=== PATIENT | male | born 1990 | race Hispanic/Latino ===

== ENCOUNTER 2016-05-10 23:12 | Emergency (ER) | payer MEDICARE ==
[2016-05-10 23:55] LABS: Urine Drugs of Abuse Note Disclamer
[2016-05-11] LABS: Bilirubin,Urine NEG (Negative); Blood,Urine NEG (Negative); Ketones,Urine NEG (Negative); Leukocyte Esterase,Urine NEG (Negative); Mucus,Urine FEW /HPF; Nitrite,Urine NEG (Negative); Protein,Urine <15 mg/dL mg/dL (Negative); Urobilinogen,Urine < 2.0 mg/dL (<2.0)
[2016-05-11] MEDS ORDERED: ATIVAN ONE (00:01)
[2016-05-11] MEDS ORDERED: HALDOL ONE (00:01)
[2016-05-11] MEDS ORDERED: BENADRYL ONE (00:01)
[2016-05-11] MEDS ORDERED: BENADRYL IM ONE (00:16)
[2016-05-11] MEDS ORDERED: ATIVAN IM ONE (00:16)
[2016-05-11] MEDS ORDERED: HALDOL IM ONE (00:16)
[2016-05-11] MEDS ORDERED: BOOSTRIX IM ONE (01:14)
--- NOTE | 2016-05-11 01:14 | Emergency Department Report ---
HPI - General Chief Complaint: Psych Time Seen by Provider: 05/11/16 01:00 - [facility] HPI: Room 14 The patient is a 25-year-old male presenting with a chief complaint of suicidal ideation. The patient states he has been having family problems and today the patient states he attempted to hang himself by tying to together not making a noose. This patient states she put the noose around his neck and hung for approximately 35 seconds before the wire broke. The patient states he took a kitchen knife and scratched at his left wrist. When asked if anything is bothering him currently the patient states he just feels depressed and suicidal. Patient denies other complaints Location: Mental state Duration: 1 day Quality: Suicidal Severity: Severe Modifying factors: [see above] Context: [see above] Mode of transportation: [not driving] ED Past Medical Hx - Past Medical History Hx Hypertension: Yes Hx Headaches / Migraines: Yes Hx Psychiatric Treatment: Yes (depression, anxiety, narcotic abuse and dependence) Additional medical history: Chronic resting tachycardia. Narcotic abuse and dependence. SI - Surgical History Hx Appendectomy: Yes - Family History Family history: no significant - Social History Smoking Status: Current Every Day Smoker (1/2 pack per day) Substance Use Type: None (denies illicit drug use) - Medications Home Medications: Home Medications Medication Instructions Recorded Confirmed Last Taken Type Trazodone HCl [traZODone] 150 mg PO QHS 02/13/16 05/10/16 05/06/16 History risperiDONE [RisperDAL] 4 mg PO BID 02/13/16 05/10/16 05/06/16 History ED Review of Systems ROS: Stated complaint: SUICIDAL Other details as noted in HPI Comment: All other systems reviewed and negative Constitutional: denies: chills, fever Eyes: denies: eye pain, eye discharge, vision change ENT: denies: ear pain, throat pain Respiratory: denies: cough, shortness of breath, wheezing Cardiovascular: denies: chest pain, palpitations Endocrine: no symptoms reported Gastrointestinal: denies: abdominal pain, nausea, diarrhea Genitourinary: denies: urgency, dysuria Musculoskeletal: denies: back pain, joint swelling, arthralgia Skin: denies: rash, lesions Neurological: denies: headache, weakness, paresthesias Psychiatric: suicidal thoughts Hematological/Lymphatic: denies: easy bleeding, easy bruising Physical Exam - Physical Exam Vital Signs: Vital Signs 05/10/16 05/10/16 23:34 23:38 Temperature 98.2 F Pulse Rate 103 H Respiratory 18 16 Rate Blood Pressure 135/81 [Left] O2 Sat by Pulse 98 98 Oximetry Physical Exam: GENERAL: The patient is well-developed well-nourished male sleeping on stretcher not appear to be in acute distress. [] HEENT: Normocephalic. Atraumatic. Extraocular motions are intact. Patient has moist mucous membranes. NECK: Supple. No meningitic signs are noted. Trachea midline. No stridor. No ligature laughlin seen CHEST/LUNGS: Clear to auscultation. There is no respiratory distress noted. HEART/CARDIOVASCULAR: Regular. There is tachycardia. There is no gallop rub or murmur. ABDOMEN: Abdomen is soft, nontender. Patient has normal bowel sounds. There is no abdominal distention. SKIN: There is no rash. There is no edema. There is no diaphoresis. There are multiple superficial linear abrasions to the anterior aspect of left wrist NEURO: The patient is awake, alert, and oriented. The patient is cooperative. The patient has normal speech MUSCULOSKELETAL: There is no evidence of acute injury. ED Course Vital Signs 05/10/16 05/10/16 23:34 23:38 Temperature 98.2 F Pulse Rate 103 H Respiratory 18 16 Rate Blood Pressure 135/81 [Left] O2 Sat by Pulse 98 98 Oximetry ED Medical Decision Making - Lab Data Result diagrams: 05/11/16 01:15 05/11/16 01:15 Laboratory Tests 05/10/16 05/10/16 05/11/16 23:34 23:34 01:15 WBC RBC Hgb Hct MCV MCH MCHC RDW Plt Count Lymph % (Auto) [place] % (Auto) Eos % (Auto) Baso % (Auto) Lymph # [place] # Eos # Baso # Seg Neutrophils % Seg Neutrophils # Sodium 141 Potassium 4.1 Chloride 102.1 Carbon Dioxide 23 Anion Gap 20 BUN 14 Creatinine 0.8 Estimated GFR > 60 BUN/Creatinine Ratio 17.50 Glucose 98 Calcium 9.7 Urine Color Yellow Urine Turbidity Clear Urine pH 6.0 Ur Specific [place] 1.023 Urine Protein <15 mg/dl Urine Glucose (UA) Neg Urine Ketones Neg Urine Blood Neg Urine Nitrite Neg Urine Bilirubin Neg Urine Urobilinogen < 2.0 Ur Leukocyte Esterase Neg Urine WBC (Auto) 1.0 Urine RBC (Auto) 1.0 U Epithel Cells (Auto) 1.0 Urine Mucus Few Salicylates Urine Opiates Screen Presumptive negative Urine Methadone Screen Presumptive negative Acetaminophen Ur Barbiturates Screen Presumptive negative Ur Phencyclidine Scrn Presumptive negative Ur Amphetamines Screen Presumptive negative U Benzodiazepines Scrn Presumptive positive Urine Cocaine Screen Presumptive negative U Marijuana (THC) Screen Presumptive negative Drugs of Abuse Note Disclamer Plasma/Serum Alcohol 05/11/16 05/11/16 05/11/16 01:15 01:15 01:15 WBC 13.8 H RBC 5.07 H Hgb 13.4 Hct 40.2 MCV 79 L MCH 26 L MCHC 33 RDW 14.4 Plt Count 418 Lymph % (Auto) 24.1 [place] % (Auto) 7.9 H Eos % (Auto) 0.6 Baso % (Auto) 0.5 Lymph # 3.3 [place] # 1.1 H Eos # 0.1 Baso # 0.1 Seg Neutrophils % 66.9 Seg Neutrophils # 9.3 H Sodium Potassium Chloride Carbon Dioxide Anion Gap BUN Creatinine Estimated GFR BUN/Creatinine Ratio Glucose Calcium Urine Color Urine Turbidity Urine pH Ur Specific [place] Urine Protein Urine Glucose (UA) Urine Ketones Urine Blood Urine Nitrite Urine Bilirubin Urine Urobilinogen Ur Leukocyte Esterase Urine WBC (Auto) Urine RBC (Auto) U Epithel Cells (Auto) Urine Mucus Salicylates < 0.3 L Urine Opiates Screen Urine Methadone Screen Acetaminophen Ur Barbiturates Screen Ur Phencyclidine Scrn Ur Amphetamines Screen U Benzodiazepines Scrn Urine Cocaine Screen U Marijuana (THC) Screen Drugs of Abuse Note Plasma/Serum Alcohol < 0.01 05/11/16 01:15 WBC RBC Hgb Hct MCV MCH MCHC RDW Plt Count Lymph % (Auto) [place] % (Auto) Eos % (Auto) Baso % (Auto) Lymph # [place] # Eos # Baso # Seg Neutrophils % Seg Neutrophils # Sodium Potassium Chloride Carbon Dioxide Anion Gap BUN Creatinine Estimated GFR BUN/Creatinine Ratio Glucose Calcium Urine Color Urine Turbidity Urine pH Ur Specific [place] Urine Protein Urine Glucose (UA) Urine Ketones Urine Blood Urine Nitrite Urine Bilirubin Urine Urobilinogen Ur Leukocyte Esterase Urine WBC (Auto) Urine RBC (Auto) U Epithel Cells (Auto) Urine Mucus Salicylates Urine Opiates Screen Urine Methadone Screen Acetaminophen < 15.0 Ur Barbiturates Screen Ur Phencyclidine Scrn Ur Amphetamines Screen U Benzodiazepines Scrn Urine Cocaine Screen U Marijuana (THC) Screen Drugs of Abuse Note Plasma/Serum Alcohol - Differential Diagnosis suicidal ideation Critical care attestation.: If time is entered above; I have spent that time in minutes in the direct care of this critically ill patient, excluding procedure time. ED Disposition Clinical Impression: Suicidal ideation Disposition: DC/TX PSY HOSP/PSY UNIT Is pt being admited?: No Does the pt Need Aspirin: No Condition: Stable Referrals: PRIMARY CARE, [Primary Care Provider] - 3-5 Days Time of Disposition: 01:22 (awaiting acceptance)
[2016-05-11] MEDS ORDERED: GEODON ONE (01:30)
[2016-05-11] MEDS ORDERED: GEODON PO ONE (01:30)
[2016-05-11 01:39] LABS: Basophils % (Auto) 0.5 % (0.0-1.8); Eosinophils % (Auto) 0.6 % (0.0-4.3); Hematocrit 40.2 % (35.5-45.6); Hemoglobin 13.4 gm/dl (11.8-15.2); Mean Corpuscular HGB Conc 33 % (32-34); Mean Corpuscular Hemoglobin 26 pg (28-32); Mean Corpuscular Volume 79 fl (84-94); Platelet Count 418 K/mm3 (140-440); Red Blood Count 5.07 M/mm3 (3.65-5.03); Red Cell Distribution Width 14.4 % (13.2-15.2); White Blood Count 13.8 K/mm3 (4.5-11.0)
[2016-05-11 01:45] LABS: Blood Urea Nitrogen 14 mg/dL (9-20); Calcium 9.7 mg/dL (8.4-10.2); Carbon Dioxide 23 mmol/L (22-30); Chloride 102.1 mmol/L (98-107); Glucose 98 mg/dL (75-100); Potassium 4.1 mmol/L (3.6-5.0); Sodium 141 mmol/L (137-145)
[2016-05-11 01:47] LABS: Anion Gap 20 mmol/L
[2016-05-11] MEDS: RisperDAL PO SCH ×2 (21:50→21:51)
[2016-05-11] MEDS: DESYREL PO SCH (21:52)
[2016-05-12] MEDS: RisperDAL PO SCH ×4 (10:25→22:00)
[2016-05-12] MEDS ORDERED: WATER FOR INJ (PF) IM ONE (12:57)
[2016-05-12] MEDS ORDERED: GEODON IM SCH (13:00)
[2016-05-12] MEDS ORDERED: GEODON IM ONE (13:02)
--- NOTE | 2016-05-12 15:15 | Event Note ---
Date: 05/12/16 Awaiting psychiatric placement. Vital signs reviewed. Documented heart rate of 974 most likely an error. Awaiting repeat vital signs. Vital Signs 05/10/16 05/10/16 05/11/16 23:34 23:38 21:58 Temperature 98.2 F 98.2 F Pulse Rate 103 H 974 H Respiratory 18 16 18 Rate Blood Pressure 135/81 120/88 [Left] O2 Sat by Pulse 98 98 98 Oximetry
[2016-05-12] MEDS: DESYREL PO SCH (22:00)
[2016-05-13] MEDS ORDERED: RisperDAL ONE (09:15)
[2016-05-13] MEDS ORDERED: ATIVAN PO ONE (09:22)
[2016-05-13] MEDS: RisperDAL PO SCH ×4 (09:59→22:24)
[2016-05-13] MEDS ORDERED: BENADRYL IM ONE (15:42)
[2016-05-13] MEDS ORDERED: BENADRYL ONE (18:05)
[2016-05-13] MEDS: DESYREL PO SCH (22:25)
[2016-05-14] MEDS ORDERED: BENADRYL PO ONE (08:48)
[2016-05-14] MEDS: RisperDAL PO SCH ×2 (09:51)
[2016-05-14 10:13] LABS: Basophils % (Auto) 0.9 % (0.0-1.8); Eosinophils % (Auto) 0.6 % (0.0-4.3); Hematocrit 38.3 % (35.5-45.6); Hemoglobin 12.6 gm/dl (11.8-15.2); Mean Corpuscular HGB Conc 33 % (32-34); Mean Corpuscular Hemoglobin 27 pg (28-32); Mean Corpuscular Volume 81 fl (84-94); Platelet Count 418 K/mm3 (140-440); Red Blood Count 4.75 M/mm3 (3.65-5.03); Red Cell Distribution Width 14.9 % (13.2-15.2)
[2016-05-14 15:46] VITALS: BP 148/98
== END 2016-05-14 16:46 ==
LOC: EEVIPCON 23:12 → ED 23:12
DX: R45.851 Suicidal ideations (principal); I10 Essential (primary) hypertension; G43.909 Migraine, unspecified, not intractable, without status migrainosus; F32.9 Major depressive disorder, single episode, unspecified; F17.200 Nicotine dependence, unspecified, uncomplicated; Z90.49 Acquired absence of other specified parts of digestive tract
CPT/HCPCS: 36415; 80048; 80307; 81001; 85025; 90471; 90715; 96372; 99285; G0480; J1200; J1630; J2060; J3486; 80320

== ENCOUNTER 2017-09-28 11:03 | Emergency (ER) | payer MEDICAID, OTHER ==
[2017-09-28] MEDS ORDERED: TENORMIN PO ONE (13:09)
[2017-09-28] MEDS ORDERED: TORADOL IM ONE (13:09)
[2017-09-28] MEDS ORDERED: NORCO 5/325 PO ONE (13:09)
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
[2017-09-28 14:51] VITALS: BP 98/71
--- NOTE | 2017-09-30 14:26 | Cat Scan Report ---
FINAL REPORT EXAM: CT HEAD/BRAIN WO CON HISTORY: left sided head injury with loc TECHNIQUE: CT examination of the head without IV contrast PRIORS: None. FINDINGS: No acute air-fluid level visualized in the included air-filled sinuses. Bone windows demonstrate no acute fracture. The brain is without mass, mass effect, hemorrhage, or acute infarct. There is no extra-axial intracranial bleed, brain bleed, or midline shift. The ventricles and sulci are age-appropriate. IMPRESSION: No acute CVA, intracranial bleed, or brain mass
== END 2017-09-28 14:51 | disposition home or self-care (01) ==
LOC: ED 11:03
DX: S09.90XA Unspecified injury of head, initial encounter (principal); G43.909 Migraine, unspecified, not intractable, without status migrainosus; F17.200 Nicotine dependence, unspecified, uncomplicated; R00.0 Tachycardia, unspecified; Y08.89XA Assault by other specified means, initial encounter; Y93.89 Activity, other specified; Y92.89 Other specified places as the place of occurrence of the external cause; Y99.8 Other external cause status
CPT/HCPCS: 70450; 96372; 99283; J1885

== ENCOUNTER 2020-04-04 19:43 | Emergency (ER) | payer SELFPAY ==
[2020-04-04 21:47] VITALS: BP 165/85
== END 2020-04-04 23:20 | disposition left against medical advice (07) ==
LOC: ED 19:43
DX: M54.89 Other dorsalgia (principal); Z53.21 Procedure and treatment not carried out due to patient leaving prior to being seen by health care provider

== ENCOUNTER 2020-08-23 17:27 | Emergency (ER) | payer SELFPAY ==
[2020-08-23 18:28] VITALS: BP 128/76
--- NOTE | 2020-08-23 19:07 | Emergency Department Report ---
Chief Complaint: Medical Clearance Stated Complaint: MEDICATION REFILL Time Seen by Provider: 08/23/20 19:01 - HPI History of Present Illness: Patient is a 29-year-old male who presents emergency room with complaints of medication refill. He states that he takes 600 mg of gabapentin 3 times a day. He states he has been out of his medication for 2 weeks. He reports that his insurance stopped and he is not able to have his insurance reinstated until August 27. He denies any fall or injury. He states he has a history of neuropathy in his left leg. He denies any acute trauma or fall or injury. He states that he does have his chronic pain. He denies any changes in his pain. He denies any fever, nausea, vomiting, diarrhea, weakness, bowel or bladder incontinence. He is ambulatory without difficulty. Past medical history of bipolar, narcotic abuse, depression, anxiety, chronic tachycardia. He denies any SI or HI Vitals with mild tachycardia, otherwise normal Patient reports that he just smoked a cigarette and this is typical for his heart rate On exam: Non toxic appearing, no acute distress atraumatic, normocephalic normal appearance of the eyes, PERRL, EOMI, no periorbital edema or ecchymosis moist mucus membranes No respiratory distress, no accessory muscle use A&O x4, normal gait Patient is presenting for refill of gabapentin Advised patient that this medication need to be managed by primary care physician Discussed the importance of follow-up Discussed return precautions Medical screen examination performed there is no threat to life or limb at this time - Exam Vital Signs: Vital Signs 08/23/20 18:25 Temperature 98.2 F Pulse Rate 114 H Respiratory 14 Rate Blood Pressure 128/76 O2 Sat by Pulse 99 Oximetry MSE screening note: Focused history and physical exam performed. Due to findings the following was ordered: ED Disposition for MSE Clinical Impression: Encounter for medical screening examination Disposition: Z-07 MED SCREENING EXAM-LEFT Is pt being admited?: No Does the pt Need Aspirin: No Condition: Stable Additional Instructions: follow up with a clinic or primary care doctor for refill of your medication. return to the emergency room for any new or worsening symptoms. walk in clinic: [facility] in [place], [place] Address: [address] [place] [address], [place] [address] Referrals: ESME GUZMÁN MD [Staff Physician] - 2-3 Days [facility] [Provider Group] - 2-3 Days Time of Disposition: 19:05 Print Language: GUINEAN
== END 2020-08-23 19:20 | disposition left against medical advice (07) ==
LOC: ED 17:27
DX: Z76.0 Encounter for issue of repeat prescription (principal); Z53.21 Procedure and treatment not carried out due to patient leaving prior to being seen by health care provider